=== PATIENT | male | born 1970 | race Caucasian/White ===

== ENCOUNTER 2017-09-03 08:52 | Inpatient (IN) | payer OTHER ==
[~2017-09-03] VITALS: Ht 195.6 cm; Wt 145.1 kg
[~2017-09-03 08:52] MED LIST: LOSARTAN POTASS50 MG PO
== END 2017-09-06 09:50 | disposition home or self-care (01) | DRG 670 ==
LOC: SURH 09-04 06:00 → O/R 09-04 06:00 → SURG 09-04 07:00 → SURH 09-04 13:08 → SURG 09-04 17:04 → SURH 09-06 09:50
PROVIDERS: Urology
PROC: BT1DZZZ Fluoroscopy of Right Kidney, Ureter and Bladder (ICD-10-PCS; 2017-09-04)
PROC: 0TC38ZZ Extirpation of Matter from Right Kidney Pelvis, Via Natural or Artificial Opening Endoscopic (ICD-10-PCS; principal; 2017-09-04 07:00)
PROC: BT11YZZ Fluoroscopy of Right Kidney using Other Contrast (ICD-10-PCS; 2017-09-06)
DX: N20.0 Calculus of kidney (principal); I10 Essential (primary) hypertension